=== PATIENT | female | born 2005 | race African-American/Black ===

== ENCOUNTER 2024-04-20 15:26 | Inpatient (IN) | payer MEDICAID ==
[~2024-04-20] VITALS: Ht 162.6 cm; Wt 81.8 kg
[~2024-04-20 15:26] MED LIST: BUSP5TAB20 PO; HYDR-4808 PO; LITH300C3 PO; LURA60TA PO; MELA5TAB40 PO; NALT50TA33 PO; OMEG-135 PO; PRAZ1 PO
[2024-04-20 16:46] LABS: BASOPHILS % (AUTO) 0.3 % (0.0-2.0); EOSINOPHILS % (AUTO) 1.8 % (1.0-6.0); HEMATOCRIT 37.6 % (36-46); HEMOGLOBIN 12.2 g/dL (12.0-16.0); LYMPHOCYTES # (AUTO) 2.1 K/uL (1.0-4.8); LYMPHOCYTES % (AUTO) 24.4 % (22.0-44.0); MEAN CORPUSCULAR HEMOGLOBIN 27.2 pg (26.0-34.0); MEAN CORPUSCULAR HGB CONC 32.3 G/dL (31.0-37.0); MEAN CORPUSCULAR VOLUME 84 fL (80-100); MONOCYTES # (AUTO) 0.5 K/uL (0.1-1.0); MONOCYTES % (AUTO) 5.9 % (2.0-9.0); NEUTROPHILS # (AUTO) 5.9 K/uL (1.8-7.7); NEUTROPHILS % (AUTO) 67.6 % (40.0-70.0); PLATELET COUNT (AUTO) 292 K/uL (150-450); RED BLOOD CELL COUNT(AUTO) 4.47 MIL/uL (4.00-5.20); RED CELL DISTRIBUTION WIDTH 14.3 % (11.5-14.5); WHITE BLOOD COUNT (AUTO) 8.7 K/uL (4.5-11.0)
[2024-04-20 16:53] LABS: ANION GAP 8 mmol/L (8-16); CALCIUM, TOTAL 8.7 mg/dL (8.8-10.5); CARBON DIOXIDE 27 mmol/L (22-29); CHLORIDE 105 mmol/L (98-107); CREATININE 0.79 mg/dL (0.60-1.30); GLOMERULAR FILTR. RATE CALC > 60 mL/min (>60); GLUCOSE,RANDOM 75 mg/dL (70-110); POTASSIUM 3.8 mmol/L (3.5-5.1); SODIUM SERUM 140 mmol/L (136-145); UREA NITROGEN, BLOOD 12 mg/dL (7-18)
[2024-04-20 17:04] LABS: ALCOHOL, BLOOD (SERUM) < 3 mg/dL (0-10)
[2024-04-20 20:36] LABS: COVID AG,FIA SOURCE NASAL SWAB
[2024-04-20 21:07] LABS: SARS-COV2 (COVID) ANTIGEN,FIA Negative (Negative)
[2024-04-20] MEDS ORDERED: ZOLPIDEM TARTRATE 10 MG TABLET PO PRN (23:15)
[2024-04-20] MEDS ORDERED: HALOPERIDOL 5 MG TABLET PO PRN (23:15)
[2024-04-20 23:35] VITALS: BP 103/64; PULSE 92; RESP 16; TEMP 96.7; O2SAT 99
[2024-04-21 09:14] VITALS: BP 102/60; PULSE 79; RESP 16; TEMP 97.5; O2SAT 98
[2024-04-21] MEDS ORDERED: BACITRACIN 28 GM OINTMENT TP PRN (09:15)
[2024-04-21] MEDS ORDERED: CloNIDine HCL 0.1 MG TABLET PO PRN (09:15)
[2024-04-21] MEDS ORDERED: IBUPROFEN 600 MG TABLET PO PRN (09:15)
[2024-04-21] MEDS ORDERED: ALBUTEROL SULFATE HFA 90 MCG/PUFF 8 GM INHALER IH PRN (09:15)
[2024-04-21] MEDS ORDERED: OMEPRAZOLE 20 MG CAPSULE PO PRN (09:15)
[2024-04-21] MEDS ORDERED: MAGNESIUM HYDROXIDE SUSPENSION 30 ML UDCUP PO PRN (09:15)
[2024-04-21] MEDS ORDERED: MAG HYDROX/ALUMINUM HYD/SIMETH ES 30 ML SUSPENSION UDCUP PO PRN (09:15)
[2024-04-21] MEDS ORDERED: PETROLATUM,WHITE 28 GM JELLY TP PRN (09:15)
[2024-04-21] MEDS ORDERED: DOCUSATE SODIUM 100 MG CAPSULE PO PRN (09:15)
[2024-04-21] MEDS ORDERED: ACETAMINOPHEN 325 MG TABLET PO PRN (09:15)
[2024-04-21] MEDS ORDERED: ONDANSETRON HCL 4 MG TABLET PO PRN (09:15)
[2024-04-21] MEDS ORDERED: BENZOCAINE/MENTHOL LOZENGE PO PRN (09:15)
[2024-04-21] MEDS ORDERED: LOPERAMIDE HCL 2 MG CAPSULE PO PRN (09:15)
[2024-04-21] MEDS: LURASIDONE HCL 60 MG TABLET PO SCH (17:09)
[2024-04-21] MEDS: HydrOXYzine PAMOATE 25 MG CAPSULE PO SCH (17:09)
[2024-04-21] MEDS: BusPIRone HCL 5 MG TABLET PO SCH (17:09)
[2024-04-21] MEDS: PRAZOSIN HCL 1 MG CAPSULE PO SCH (20:12)
[2024-04-21] MEDS: LITHIUM CARBONATE 300 MG CAPSULE PO SCH (20:12)
[2024-04-21 20:32] VITALS: BP 109/62; PULSE 74; RESP 18; TEMP 98.1; O2SAT 97
[2024-04-22] MEDS: OMEGA-3/DHA/EPA/FISH OIL 1,000 MG CAPSULE PO SCH (08:36)
[2024-04-22 09:03] VITALS: BP 116/59; PULSE 72; RESP 17; TEMP 98; O2SAT 98
[2024-04-22] MEDS: ETHYL ALCOHOL 62% ANTISEPTIC NASAL SANITIZER 0.6 ML AMPUL NASAL ONE (13:32)
[2024-04-22 20:19] VITALS: BP 115/77; PULSE 90; RESP 18; TEMP 97.4; O2SAT 97
[2024-04-22] MEDS: ETHYL ALCOHOL 62% ANTISEPTIC NASAL SANITIZER 0.6 ML AMPUL NASAL SCH (21:00)
[2024-04-23 08:19] VITALS: BP 119/69; PULSE 83; RESP 18; TEMP 97.4; O2SAT 99
[2024-04-23 20:15] VITALS: BP 120/75; PULSE 75; RESP 17; TEMP 97.2; O2SAT 100
[2024-04-24 08:19] VITALS: BP 119/67; PULSE 80; RESP 17; TEMP 98.2; O2SAT 97
[2024-04-24] MEDS: LORazepam 2 MG TABLET PO PRN (09:43)
== END 2024-04-24 18:04 | disposition home or self-care (01) | DRG 750 ==
LOC: EMS 15:29 → B3A 23:06
PROVIDERS: ADMIT Psychiatry & Neurology Psychiatry; ATTEND Psychiatry & Neurology Psychiatry
DX: F25.9 Schizoaffective disorder, unspecified (principal); R45.851 Suicidal ideations; F31.9 Bipolar disorder, unspecified; Z20.822 Contact with and (suspected) exposure to COVID-19; F41.9 Anxiety disorder, unspecified; G47.00 Insomnia, unspecified; K59.00 Constipation, unspecified; E66.9 Obesity, unspecified; Z68.31 Body mass index [BMI] 31.0-31.9, adult; Z79.899 Other long term (current) drug therapy
CPT/HCPCS: 80048; 84703; 85025; 87081; 99285; G0480; Z7502; Z7610